=== PATIENT | female | born 1965 | race Caucasian/White ===

== ENCOUNTER 2017-02-05 05:53 | Emergency (ER) | payer BC, OTHER ==
[2017-02-05 06:21] LABS: Urine Bilirubin Negative (NEGATIVE); Urine Blood 250 /ul (NEGATIVE); Urine Ketone 5 mg/dL (NEGATIVE); Urine Nitrite Negative (NEGATIVE); Urine Protein 15 mg/dL (NEGATIVE); Urine Specific Gravity 1.025 SP.GR. (1.005-1.010); Urine Urobilinogen Normal (NORMAL); Urine pH 6.5 pH (5.0-7.0)
[2017-02-05] MEDS ORDERED: KETOROLAC TROMETHAMINE 30 MG/ML VIAL IV ONE (06:26)
[2017-02-05] MEDS ORDERED: ONDANSETRON HCL/PF 2 MG/ML VIAL IV ONE (06:26)
[2017-02-05] MEDS ORDERED: NORMAL SALINE 1,000 ML IV ONE (06:26)
[2017-02-05 06:31] LABS: Urine Appearance Slightly Cloudy; Urine Bacteria TRACE; Urine Color Yellow; Urine Mucus Moderate - 2+; Urine RBC 25-50 /hpf (0-5); Urine WBC 0-5 /hpf (0-5)
[2017-02-05] MEDS ORDERED: KETOROLAC TROMETHAMINE 30 MG/ML VIAL ONE (06:32)
[2017-02-05] MEDS ORDERED: ONDANSETRON HCL/PF 2 MG/ML VIAL ONE (06:32)
--- NOTE | 2017-02-05 06:33 | ERNOTE ---
ER Female HPI Stated Complaint: KIDNEY STONE Presenting Symptoms: other - left flank pain Time Seen by Provider: 02/05/17 06:23 Source: patient, family Exam Limitations: clinical condition Immunizations: IMMUNIZATION HX Immunizations Up to Date unknown Allergies/Adverse Reactions: Allergies No Known Allergies Allergy (Unverified 02/05/17 06:03) Home Medications: HOME MEDICATIONS HYDROcodone/ACETAMINOPHEN [Lorcet 5-325 mg Tablet] 1 each PO QID PRN #20 tablet 02/05/17 [Last Taken Unknown] - History of Present Illness Narrative: Pt had onset of left flank pain yesterday that worsened through the night. Around midnight she tried taking hydrocodone that she had left over from last kidney stone 5 years ago but vomited soon after. She has not been able to hold anything down since. Timing: Present: getting worse Quality: Present: severe, cramping, stabbing Onset Location: Present: left flank Radiation: Present: LLQ Activities at Onset: Present: none Prior Abdominal Problems: Present: similar symptoms Associated Symptoms: Present: nausea, vomiting Review of Systems - Review of Systems Constitutional: Absent: recent illness, fever EYE: Present: no symptoms reported ENT: Present: no symptoms reported Respiratory: Present: no symptoms reported Cardiology: Present: no symptoms reported Gastrointestinal/Abdominal: Present: See HPI Genitourinary: Present: See HPI, pain. Absent: frequency, dysuria, hematuria Musculoskeletal: Present: no symptoms reported Skin: Present: no symptoms reported Neurological: Present: no symptoms reported - Patient's Past Medical History Patient History - Medical: No pertinent hx Patient History - Cardiac/Respiratory: No pertinent hx Patient History - Cancer: No Hx of Cancer Patient History - Surgical Procedures: Back Surgery, Tubal Ligation Patient History - Other: None LMP (females 10-50): Menopausal - Social History Living Situations: alone Abuse History: No History of abuse Psych History: No pertinent hx Smoking Status: Never smoker Have you smoked in the past 12 months: No Do you dip or chew tobacco: No Alcohol Use: occasionally Drug Use: none - Immunizations Immunizations Up to Date: - unknown Physical Exam - Physical Exam General Appearance: Present: wd/wn, alert, moderate distress Head Exam: Present: normal inspection, no evidence of injury Respiratory: Present: no respiratory distress, no accessory muscle use Gastrointestinal/Abdominal: Present: tenderness - LUQ Back Exam: Present: CVA tenderness (L). Absent: vertebral tenderness Extremity Exam: Present: normal inspection, normal range of motion Neurological Exam: Present: alert, oriented Skin Exam: Present: normal color, warm/dry ED Progress - Results and Orders Patient's Lab Results:: I have reviewed the patient's lab results. Results and Orders: Laboratory Tests 02/05/17 02/05/17 02/05/17 06:15 06:40 06:40 WBC 12.1 H Hgb 12.1 L Hct 36.6 L Neutrophils % 92.1 H Sodium 140 Potassium 4.0 Chloride 104 BUN 22 Creatinine 0.99 Est GFR (Non-Af Amer) 63 Random Glucose 163 H Calcium 8.7 Urine Color Yellow Urine Appearance Slightly cloudy Urine pH 6.5 Ur Specific [place] 1.025 Urine Protein 15 H Urine Glucose (UA) Negative Urine Ketones 5 Urine Blood 250 H Urine Nitrate Negative Urine Bilirubin Negative Prot Sulfosalicylic Acd 1+ Urine Urobilinogen Normal Ur Leukocyte Esterase Negative Urine RBC 25-50 H Urine WBC 0-5 Ur Epithelial Cells 0-5 Urine Bacteria Trace Urine Mucus Moderate - 2+ H Urine Culture Comments No culture indicated - Vital Signs Patient's Vital Signs:: I have reviewed the patient's vital signs. Vital Signs: Vital Signs 02/05/17 05:56 Temperature 36.6 C Pulse Rate 68 Respiratory 16 Rate Blood Pressure 105/67 O2 Sat by Pulse 99 Oximetry - CT/Ultrasound CT/Ultrasound Narrative: CT abd/ pelvis Left kidney: I do not see evidence from nonobstructing renal calculi within the left kidney. There is left sided pelvocaliectasis and extravasation of urine around the left kidney. There is a 5.5 mm calculus in the proximal left ureter(series 3 image 51 and series 4 image 34). I'm not convinced of an additional calculi within the left ureter. Otherwise negative. - Progress/Reassessment Chief Complaint: Urinary Tract Problems Progress:: Improved Progress Note-Subjective: 02/05/17 08:15 Nursing got pt an appointment with urology at [facility] today at 13: 15. Departure Clinical Impression: Hydronephrosis due to obstruction of ureter - Departure Disposition: Home Follow Up Needed Condition: Good Instructions: Renal Colic, [id number], Kidney Stones, [id number] Additional Instructions: follow up with Urology at [facility] at 1:15 today. Take pain meds as needed. Prescriptions: HYDROcodone/ACETAMINOPHEN [Lorcet 5-325 mg Tablet] 1 each PO QID PRN #20 tablet PRN Reason: Pain
[2017-02-05 06:48] LABS: Hematocrit 36.6 % (37.0-47.0); Hemoglobin 12.1 gm/dL (12.5-16.0); Mean Cell Volume 91.3 fl (78-100); Mean Corpuscular Hemoglobin 30.2 pg (27-31); Mean Corpuscular Hgb Conc 33.1 g/dl (32-36); Mean Platelet Volume 9.7 fl (6.0-9.5); Neutrophil # 11.1 K/mm3 (1.3-6.0); Neutrophil % 92.1 % (42-75.0); Platelet Count 251 K/mm3 (150-450); Red Blood Count 4.01 M/mm3 (4.2-5.4); Red Cell Distribution Width 12.6 % (11.5-14.0); White Blood Count 12.1 K/mm3 (4.0-10.5)
--- OUTSIDE RECORDS SUMMARY | 2017-02-05 06:49 | XMS REPORT | Clinical Summary ---
:1965 Author Organization [employer] [place] [address] Care Team Providers Name Role Phone Unavailable Primary Care Provider Unavailable Source Comments This disclosure is being made pursuant to the [employer] program and maynot contain all information available regarding this patient.[employer] Allergies Not on File Current Medications Be aware that medications may not be up to date as of this document. Alwaysverify current medications with the patient. Not on file Active Problems Not on file Social History Tobacco Use Types Packs/Day Years Used Date Never Assessed Sex Assigned at Date Recorded Not on file Last Filed Vital Signs Not on file Plan of Treatment Health Maintenance Due Date Last Done Comments Retired-Pertussis Vaccine Adult 1984 Retired-Tetanus Vaccine Adult 1984 Pap Smear 1986 Mammogram 2005 Colonoscopy 2015 Well Adult Visit 2015 Retired-INFLUENZA VACCINE 03/08/2015 Results Not on filefrom Last 3 Months
[2017-02-05 06:55] LABS: Anion Gap 13.9 mmol/L (6.8-13.8); BUN/Creatinine Ratio 22.2 (9.0-21.6); Calcium * 8.7 mg/dL (7.9-10.9); Carbon Dioxide 26.1 mmol/L (24-32.6); Estimated Creat Clear 58.1
[2017-02-05 08:34] VITALS: BP 120/66
== END 2017-02-05 08:28 | disposition home or self-care (01) ==
LOC: ER 05:53
DX: N13.2 Hydronephrosis with renal and ureteral calculous obstruction (principal)
CPT/HCPCS: 36415; 74176; 80048; 81001; 85025; 96374; 96375; 99284; J2405